=== PATIENT | female | born 1980 | race Caucasian/White ===

== ENCOUNTER 2019-01-31 11:46 | Emergency (ER) | payer BC, OTHER ==
[2019-01-31] MEDS ORDERED: Morphine 4 MG/ML VIAL ONE (12:12)
[2019-01-31] MEDS ORDERED: Ondansetron PF 4 MG/2 ML Vial ONE (12:12)
[2019-01-31 12:38] LABS: Bilirubin Small (Negative); Blood, Urine Large (Negative); Glucose, Urine (Dipstick) Negative (Negative); Leukocyte Negative (Negative); Nitrite Negative (Negative); Protein, Urine (Dipstick) 100 mg/dL (Neg-Trace); Urobilinogen 0.2 mg/dL (Less than 2)
[2019-01-31 12:44] LABS: #Lymphocytes 1.4 thou/uL (1.20-3.40); #Monocytes 0.4 thou/uL (0.11-0.59); #Neutrophils 6.5 thou/uL (1.40-6.50); %Basophils 0.6 % (0.0-1.0); %Eosinophils 0.4 % (0.0-10.0); %Lymphocytes 16.4 % (21.0-51.0); %Neutrophils 77.6 % (42.0-75.0); Hemoglobin 13.8 g/dL (12.0-16.0); Mean Corpuscular HGB CONC 32.8 g/dL (32.0-36.0); Mean Corpuscular Hemoglobin 29.4 pg (27.0-31.0); Mean Corpuscular Volume 89.5 fL (78.0-98.0); Mean Platelet Volume 8.5 fL (7.4-10.4); Platelet Count 327 thou/uL (130-400); RBC Distribution Width 11.6 % (11.5-14.5); White Blood Cell (WBC) Count 8.3 thou/uL (4.8-10.8)
[2019-01-31 12:45] LABS: Clarity Cloudy (Clear)
[2019-01-31 12:50] LABS: Bacteria/HPF Rare-Few HPF (None Seen); RBC/HPF Greater than 50 HPF (0-3); WBC/HPF 0-3 HPF (0-3)
[2019-01-31 12:51] LABS: Mucous/LPF 2+ LPF (<2+)
[2019-01-31 12:57] LABS: BHCG - Serum Negative (NEGATIVE); Pregs Control Background? CLEAR/WHITE (CLR/WHITE); Pregs Control Bar Appear? YES (CONTROL BAR)
[2019-01-31] MEDS ORDERED: Ketorolac Tromethamine 30 MG/ML VIAL ONE (13:09)
[2019-01-31 13:37] LABS: Albumin 3.8 g/dL (3.5-5.0)
[2019-01-31 13:39] LABS: Calcium 8.3 mg/dL (7.8-10.44); Chloride 109 mmol/L (98-107); Potassium 3.9 mmol/L (3.5-5.1); Sodium 139 mmol/L (136-145)
[2019-01-31 13:40] LABS: Globulin 2.1 g/dL (2.4-3.5); Glucose 87 mg/dL (70-105); Protein, Total 5.9 g/dL (6.0-8.3)
--- NOTE | 2019-01-31 13:40 | CT ---
CT ABDOMEN AND PELVIS WITHOUT IV CONTRAST: Date: 01/31/19 INDICATION: Left flank pain. Abdominal pain. Comparison made to abdominal CT dated 05/05/14. FINDINGS: Lung bases clear. Liver, spleen, and pancreas are unremarkable considering limitations of unenhanced exam. Post cholecy stectomy change. Adrenal glands normal. Mild left hydronephrosis. Columning of the left ureter to the bladder. 4 mm calculus at the left UVJ. 4-5 mm nonobstructing calculus lower pole collecting structures left kidney. Right kidney unremarkable. Urinary bladder unremarkable. Small bowel loops appear normal. Appendix appears normal. Colon unremarkable. Pelvic structures unrem arkable. IMPRESSION: 1. 4 mm obstructing calculus left UVJ. 2. 4-5 mm nonobstructing calculus lower pole collecting structures left kidney. POS: [facility]
[2019-01-31 13:41] LABS: Anion Gap 11 mmol/L (10-20); Carbon Dioxide 23 mmol/L (22-29)
[2019-01-31 13:42] LABS: Bilirubin, Total 0.7 mg/dL (0.2-1.2)
[2019-01-31 13:43] LABS: Alkaline Phosphatase 42 U/L (40-150); Calc. Creatinine Clearance 0 mL/min (70-130); Estimated GFR-MDRD 81
[2019-01-31 13:44] LABS: BUN (Urea Nitrogen) 10 mg/dL (7.0-18.7)
[2019-01-31 13:45] LABS: AST (SGOT) 18 U/L (5-34)
[2019-01-31 13:46] LABS: ALT (SGPT) 10 U/L (8-55)
== END 2019-01-31 15:01 | disposition home or self-care (01) ==
LOC: ERS 11:46
DX: N13.2 Hydronephrosis with renal and ureteral calculous obstruction (principal); F41.9 Anxiety disorder, unspecified
CPT/HCPCS: 74176; 80053; 81003; 81015; 84703; 85025; 96361; 96374; 96375; J1885; J2270; J2405